=== PATIENT | female | born 1945 | race Caucasian/White ===

== ENCOUNTER → 2020-01-24 | Outpatient (CLI) | payer OTHER, SELFPAY ==
[~2020-01-24] MED LIST: ASPIR 8181 MG PO; ASPIRIN325 PO; ATENOLOL 50MG T50 M1 PO; BAYER CHEWABLE81 MG PO; COZAAR100 MG PO; CRESTOR10 MG PO; CYMBALTA30 MG PO; CYMBALTA60 MG PO; EFFIENT10 MG PO; IMDUR 30 MG TAB30 M1 PO; LOSARTAN POTASS50 MG PO; LOVASTATIN 20 M20 MG PO; METFORMIN HCL500 MG PO; MEVACOR40 MG PO; NITROGLYCERIN0.4 MG DISSOLVE; PRINIVIL5 MG PO; RANEXA500 MG PO; REMERON 30 MG T30 M1 PO; REMERON15 MG PO; SINGULAIR 10 MG10 M1 PO; SYMBICORT80 MCG/4.1 NASAL; ZANTAC 150MG T150 MG PO
== END ==
LOC: SJCVC 14:47
DX: R94.31 Abnormal electrocardiogram [ECG] [EKG] (principal); I45.4 Nonspecific intraventricular block; I25.10 Atherosclerotic heart disease of native coronary artery without angina pectoris; I44.7 Left bundle-branch block, unspecified; E11.9 Type 2 diabetes mellitus without complications; E78.5 Hyperlipidemia, unspecified; I10 Essential (primary) hypertension; I65.23 Occlusion and stenosis of bilateral carotid arteries; Z90.49 Acquired absence of other specified parts of digestive tract; Z90.710 Acquired absence of both cervix and uterus; Z95.5 Presence of coronary angioplasty implant and graft; Z79.899 Other long term (current) drug therapy

== ENCOUNTER → 2020-03-21 | Outpatient (CLI) | payer OTHER | LOC: SJCVCIMAG 07:33 | PROVIDERS: ATTEND Internal Medicine Cardiovascular Disease | DX: I73.9 Peripheral vascular disease, unspecified (principal); I44.7 Left bundle-branch block, unspecified; R00.0 Tachycardia, unspecified; I25.10 Atherosclerotic heart disease of native coronary artery without angina pectoris; I10 Essential (primary) hypertension; E11.9 Type 2 diabetes mellitus without complications; E78.5 Hyperlipidemia, unspecified; Z79.899 Other long term (current) drug therapy ==

== ENCOUNTER → 2021-02-28 | Outpatient (CLI) | payer OTHER | LOC: SJCVCIMAG 09:36 | PROVIDERS: ATTEND Internal Medicine Cardiovascular Disease | DX: I08.1 Rheumatic disorders of both mitral and tricuspid valves (principal); I11.9 Hypertensive heart disease without heart failure; R94.31 Abnormal electrocardiogram [ECG] [EKG]; I44.7 Left bundle-branch block, unspecified; R00.0 Tachycardia, unspecified; I25.10 Atherosclerotic heart disease of native coronary artery without angina pectoris; R53.83 Other fatigue; R68.89 Other general symptoms and signs; R06.00 Dyspnea, unspecified; R07.9 Chest pain, unspecified; I65.23 Occlusion and stenosis of bilateral carotid arteries; M79.7 Fibromyalgia; E11.9 Type 2 diabetes mellitus without complications; E78.5 Hyperlipidemia, unspecified; Z98.61 Coronary angioplasty status; Z90.49 Acquired absence of other specified parts of digestive tract; Z90.710 Acquired absence of both cervix and uterus; Z98.890 Other specified postprocedural states; Z88.8 Allergy status to other drugs, medicaments and biological substances; Z79.84 Long term (current) use of oral hypoglycemic drugs; Z79.899 Other long term (current) drug therapy; Z82.49 Family history of ischemic heart disease and other diseases of the circulatory system ==

== ENCOUNTER → 2021-03-05 | Outpatient (CLI) | payer OTHER ==
[~2021-03-05] VITALS: Ht 157.5 cm; Wt 82.1 kg
[~2021-03-05] MED LIST changes: +JARDIANCE10 MG PO; +OMEPRAZOLE40 MG PO
[2021-03-05 08:48] VITALS: BP 100/59
[2021-03-05 09:27] LABS: HEMATOCRIT 41.9 % (37.0-47.0); HEMOGLOBIN 13.7 gm/dL (12.0-15.0); MCH 29.5 pg (26.0-34.0); MCHC 32.7 g/dL (28.0-37.0); MCV 90.3 fL (80.0-100.0); RBC 4.64 mil/uL (4.20-5.00); RDW 15.2 % (10.5-14.5); WBC 6.1 thou/uL (4.0-11.0)
[2021-03-05 09:36] LABS: CALCIUM 8.9 mg/dL (8.5-10.1); CREATININE 0.9 mg/dL (0.6-1.0); POTASSIUM 3.9 mmol/L (3.5-5.1)
--- NOTE | 2021-03-06 11:07 | CATHLAB ---
[facility] Lisandra [place] [address] INVASIVE PROCEDURE REPORT Name: REGI AGGARWAL CARIDAD Room #: REG SHELDON Cash#: [id number] Admission: 03/05/21 Attend Phys: Aurelio Zhang MD, Discharge: Date of : 47 Report #: [id number] THIS REPORT FOR: cc: Harley Simpson James L. DO Mancuso, Gerald M. MD [facility] ~ APPROVED REPORT Study performed: 03/05/2021 09:40:37 Patient Details Patient Status: Out-Patient Room #: The patient is a 75 year-old female Event Personnel Aurelio Zhang [employer], Larissa Montana RN RN, Farhan Squires RTR Monitor, Sean Hancock RTR Scrub Procedures Performed Left Heart Cath w/or w/o Coronaries [id number] [facility] Art Access - R femoral artery* [id number] Initial Mod Sed Same Phys/QHP Gr5y [id number] Indication Chest pain Procedure Narrative The Right Groin^ was infiltrated with 1% Lidocaine subcutaneous anesthesia. A PINNACLE 6FR Sheath #[id number] sheath was inserted into the RFA^. Coronary angiography was performed using coronary diagnostic catheters. The right coronary system was accessed and visualized with a JR4 catheter. The left coronary system was accessed and visualized with a JL4 catheter. The left ventricle was accessed and visualized with a PIGTAIL catheter. Closure device was deployed with a Fr MYNXGRIP 6/7F #[id number]. The patient tolerated the procedure well and there were no complications associated with the procedure. There was no hematoma. Intraoperative Conscious Sedation Sedation start time: 10:10 Case end Time: 10:37 Fentanyl 50 mcg Versed 1 mg Fluoro Time: 1.30 minutes [facility] [address] [place] [address] INVASIVE PROCEDURE REPORT Name: REGI AGGARWAL Room #: [facility]#: [id number] Admission: 03/05/21 Attend Phys: Aurelio Zhang, Discharge: Date of : 47 Report #: [id number] Dose: DAP 3151.50 cGycm2 346 mGy Contrast Type and Amount: Omnipaque 104 ml Hemodynamics The aortic pressure is 156/81 mmHg with a mean of 116 mmHg. The left ventricular pressure is 178/10 mmHg with a mean of mmHg. The left ventricular end diastolic pressure is 24 mmHg. Conclusion #1 Normal left ventricular size and systolic function EF 55%. #2 abdominal aortogram is intact there is no evidence of aneurysm mild plaquing is noted. #3 left main mildly calcified widely patent giving rise to LAD and circumflex. #4 the LAD is heavily calcified there is a mid vessel stent that is widely patent. There is mild irregularities but no occlusive disease. This LAD wraps the apex. #5 circumflex OM is nondominant but moderate in size the first OM is small and has a 60 to 70% lesion would not intervene on this. The second OM is large and widely patent. The proximal circumflex before the first OM takeoff is an eccentric 50% lesion #6 the dominant right coronary is relatively small in caliber with widely patent. Gives rise to the PDA and JUNIOR. Recommendations and plan: Continue aggressive risk factor modification no indication for coronary intervention. Follow-up will be arranged. <ELECTRONICALLY SIGNED> By: Aurelio Zhang MD, FACC 03/06/21 1107 110 110 Aurelio Zhang MD, FACC /INF
== END | disposition home or self-care (01) ==
LOC: CATH 07:57
PROVIDERS: ATTEND Internal Medicine Cardiovascular Disease
DX: R07.9 Chest pain, unspecified (principal); I25.10 Atherosclerotic heart disease of native coronary artery without angina pectoris; I70.0 Atherosclerosis of aorta; I10 Essential (primary) hypertension; E11.9 Type 2 diabetes mellitus without complications; E78.00 Pure hypercholesterolemia, unspecified; M79.7 Fibromyalgia; J45.909 Unspecified asthma, uncomplicated; K21.9 Gastro-esophageal reflux disease without esophagitis; E66.9 Obesity, unspecified; F32.9 Major depressive disorder, single episode, unspecified; F41.9 Anxiety disorder, unspecified; Z98.890 Other specified postprocedural states; Z79.899 Other long term (current) drug therapy; Z90.710 Acquired absence of both cervix and uterus; Z90.49 Acquired absence of other specified parts of digestive tract; Z87.891 Personal history of nicotine dependence; Z82.49 Family history of ischemic heart disease and other diseases of the circulatory system; Z85.41 Personal history of malignant neoplasm of cervix uteri; Z88.8 Allergy status to other drugs, medicaments and biological substances